=== PATIENT | female | born 1940 | race Caucasian/White ===

== ENCOUNTER 2025-01-13 00:55 | Inpatient (IN) ==
--- NOTE | 2025-01-13 01:03 | Emergency Department Note ---
Impression & Plan Abdominal pain Admission ED Provider Note HPI: History obtained from patient. The patient is a 84-year-old female who presents the emergency department with a chief complaint of lower abdominal pain and diarrhea, patient states she also had about 10 episodes of vomiting today. Patient states her symptoms began earlier this morning. On arrival here to the ED the patient appears to be in mild distress secondary to nausea, her pain is mostly in the lower abdomen. Patient states she also had some blood-tinged mucus from her rectum earlier this evening. Patient states her diarrhea seem to have improved later in the evening as opposed to earlier in the day. Patient denies any chest pain or shortness of breath, patient is otherwise hemodynamically stable on arrival. ROS: - Per HPI Differential Diagnosis: Acute colitis, diverticulitis, viral gastroenteritis, ischemic colitis, small bowel obstruction, perforated viscus, intra-abdominal abscess, amongst other potential pathologies. *Outpatient medications and allergy history reviewed. PE: General: Alert HEENT: Normocephalic, trachea midline Eyes: Extraocular eye movement is intact, no scleral erythema Pulmonary: Clear to auscultation bilaterally, no wheezing Cardio: Regular rate and rhythm GI: Abdomen is soft to palpation, moderate tenderness in the lower abdomen to palpation without guarding or rigidity : No suprapubic tenderness MSK: No evidence of trauma or malformation of the extremities, no edema Skin: No evidence of rash Neuro: Alert, no focal deficits Psychiatric: Cooperative INDEPENDENT INTERPRETATIONS: monitoring analyst: (As interpreted by myself): - An order was placed for continuous cardiac monitoring - Patient was noted to be in sinus rhythm with a rate of 110 Interventions provided in ED: - IV fluid bolus, IV Zosyn, IV morphine, IV Zofran Medical Decision Making: IV was established and lab work obtained, patient was placed on gambling monitor. Lab work shows a leukocytosis of 18.73, hemoglobin is stable at 11.9, platelet count is 443, CMP does not show any evidence of any critical findings. Urinalysis does not show any evidence of any obvious infection. CT imaging of the abdomen pelvis was obtained, there is a nonspecific thickening of the wall of the descending colon with some pericolonic fat stranding that is considered nonspecific. On my reassessment following the above interventions the patient stated that she was feeling improved but she remained tachycardic. Given her significant leukocytosis with nonspecific thickening of the colon wall, I do feel she would benefit from admission and initiation of antibiotics. Stool culture was ordered but the patient was unable to give a sample here in the ED. Blood cultures were drawn, patient was given a dose of IV Zosyn. Her presentation was discussed with the on-call hospitalist, Dr. Calderon, and the patient was placed for admission in stable condition. Consultants/Discussions held with other healthcare providers: - Hospitalist, Dr. Calderon Disposition discussion held by myself with: - Patient and patient's family member at the bedside Diagnosis: 1. Leukocytosis, acute 2. Diarrhea, acute 3. Nonspecific colitis, acute Disposition: Admission Gordy Rodriguez DO Emergency Medicine Past Med/Surg History Problem List (Updated 01/13/25 @ 05:45 by Gordy Rodriguez DO) Abdominal pain (Acute) Social History Smoking Status: Former smoker Preferred Language: Irish Feels Safe at Home: Yes Allergies Allergies Allergy/AdvReac Type Severity Reaction Status Date / Time No Known Allergies Allergy Verified 01/13/25 01:50 Home Meds Home Medications Medication Instructions Recorded Confirmed budesonide-formoterol HFA 160 2 puff inhalation BID 01/13/25 01/13/25 mcg-4.5 mcg/actuation aerosol inhaler (Breyna) cyanocobalamin (vitamin B-12) 1,000 mcg IM MONTHLY 01/13/25 01/13/25 1,000 mcg/mL injection solution escitalopram oxalate 5 mg tablet 5 mg PO HS 01/13/25 01/13/25 melatonin 1 mg tablet 2 mg PO HS 01/13/25 01/13/25 montelukast 10 mg tablet 10 mg PO HS 01/13/25 01/13/25 multivitamin 1 tab PO HS 01/13/25 01/13/25 omeprazole 20 mg capsule,delayed 20 mg PO HS 01/13/25 01/13/25 release Results & Data (ED) Vital Signs Vital Signs - 24 hr 01/13/25 01:02 01/13/25 02:00 01/13/25 02:00 Temperature 37.2 C Temperature Source Oral Pulse Rate 92 H Pulse Rate [Apical] Pulse Rate from SpO2 Sensor Pulse Rhythm Regular Pulse Strength Normal Respiratory Rate 20 Respiratory Effort / Characteristics Non-Labored Spontaneous Respiratory Depth Normal Respiratory Pattern Regular Blood Pressure 174/83 H 143/74 H 143/74 H Blood Pressure [Right Arm] Blood Pressure Mean 113 85 85 Blood Pressure Mean [Right Arm] Blood Pressure Position Sitting Pulse Oximetry 97 Oxygen Delivery Method Room Air Oxygen Flow Rate Sepsis Recent Fever Within 48 Hours No Sepsis New/Unexplained Change in Mental Status N/A Sepsis Action Taken by Nursing No Action Required 01/13/25 02:00 01/13/25 02:00 01/13/25 02:00 Temperature Temperature Source Pulse Rate Pulse Rate [Apical] Pulse Rate from SpO2 Sensor Pulse Rhythm Pulse Strength Respiratory Rate Respiratory Effort / Characteristics Respiratory Depth Respiratory Pattern Blood Pressure 143/74 H 143/74 H 143/74 H Blood Pressure [Right Arm] Blood Pressure Mean 85 85 85 Blood Pressure Mean [Right Arm] Blood Pressure Position Pulse Oximetry Oxygen Delivery Method Oxygen Flow Rate Sepsis Recent Fever Within 48 Hours Sepsis New/Unexplained Change in Mental Status Sepsis Action Taken by Nursing 01/13/25 02:00 01/13/25 02:00 01/13/25 02:00 Temperature Temperature Source Pulse Rate Pulse Rate [Apical] Pulse Rate from SpO2 Sensor Pulse Rhythm Pulse Strength Respiratory Rate Respiratory Effort / Characteristics Respiratory Depth Respiratory Pattern Blood Pressure 143/74 H 143/74 H 143/74 H Blood Pressure [Right Arm] Blood Pressure Mean 85 85 85 Blood Pressure Mean [Right Arm] Blood Pressure Position Pulse Oximetry Oxygen Delivery Method Oxygen Flow Rate Sepsis Recent Fever Within 48 Hours Sepsis New/Unexplained Change in Mental Status Sepsis Action Taken by Nursing 01/13/25 02:00 01/13/25 02:00 01/13/25 02:08 Temperature Temperature Source Pulse Rate 107 H Pulse Rate [Apical] Pulse Rate from SpO2 Sensor Pulse Rhythm Pulse Strength Respiratory Rate Respiratory Effort / Characteristics Respiratory Depth Respiratory Pattern Blood Pressure 143/74 H 143/74 H Blood Pressure [Right Arm] Blood Pressure Mean 85 85 Blood Pressure Mean [Right Arm] Blood Pressure Position Pulse Oximetry Oxygen Delivery Method Oxygen Flow Rate Sepsis Recent Fever Within 48 Hours Sepsis New/Unexplained Change in Mental Status Sepsis Action Taken by Nursing 01/13/25 02:15 01/13/25 02:27 01/13/25 02:30 Temperature Temperature Source Pulse Rate 118 H 115 H Pulse Rate [Apical] Pulse Rate from SpO2 Sensor 118 H Pulse Rhythm Pulse Strength Respiratory Rate 23 20 Respiratory Effort / Characteristics Respiratory Depth Respiratory Pattern Blood Pressure 133/62 Blood Pressure [Right Arm] Blood Pressure Mean 80 Blood Pressure Mean [Right Arm] Blood Pressure Position Pulse Oximetry 90 Oxygen Delivery Method Oxygen Flow Rate Sepsis Recent Fever Within 48 Hours Sepsis New/Unexplained Change in Mental Status Sepsis Action Taken by Nursing 01/13/25 02:30 01/13/25 02:30 01/13/25 02:30 Temperature Temperature Source Pulse Rate Pulse Rate [Apical] Pulse Rate from SpO2 Sensor Pulse Rhythm Pulse Strength Respiratory Rate Respiratory Effort / Characteristics Respiratory Depth Respiratory Pattern Blood Pressure 133/62 133/62 133/62 Blood Pressure [Right Arm] Blood Pressure Mean 80 80 80 Blood Pressure Mean [Right Arm] Blood Pressure Position Pulse Oximetry Oxygen Delivery Method Oxygen Flow Rate Sepsis Recent Fever Within 48 Hours Sepsis New/Unexplained Change in Mental Status Sepsis Action Taken by Nursing 01/13/25 02:30 01/13/25 02:30 01/13/25 02:30 Temperature Temperature Source Pulse Rate Pulse Rate [Apical] Pulse Rate from SpO2 Sensor Pulse Rhythm Pulse Strength Respiratory Rate Respiratory Effort / Characteristics Respiratory Depth Respiratory Pattern Blood Pressure 133/62 133/62 133/62 Blood Pressure [Right Arm] Blood Pressure Mean 80 80 80 Blood Pressure Mean [Right Arm] Blood Pressure Position Pulse Oximetry Oxygen Delivery Method Oxygen Flow Rate Sepsis Recent Fever Within 48 Hours Sepsis New/Unexplained Change in Mental Status Sepsis Action Taken by Nursing 01/13/25 02:30 01/13/25 02:30 01/13/25 02:30 Temperature Temperature Source Pulse Rate Pulse Rate [Apical] Pulse Rate from SpO2 Sensor Pulse Rhythm Pulse Strength Respiratory Rate Respiratory Effort / Characteristics Respiratory Depth Respiratory Pattern Blood Pressure 133/62 133/62 133/62 Blood Pressure [Right Arm] Blood Pressure Mean 80 80 80 Blood Pressure Mean [Right Arm] Blood Pressure Position Pulse Oximetry Oxygen Delivery Method Oxygen Flow Rate Sepsis Recent Fever Within 48 Hours Sepsis New/Unexplained Change in Mental Status Sepsis Action Taken by Nursing 01/13/25 02:30 01/13/25 02:30 01/13/25 02:39 Temperature Temperature Source Pulse Rate 115 H 114 H Pulse Rate [Apical] Pulse Rate from SpO2 Sensor 114 H 114 H Pulse Rhythm Pulse Strength Respiratory Rate 23 23 Respiratory Effort / Characteristics Respiratory Depth Respiratory Pattern Blood Pressure 133/62 Blood Pressure [Right Arm] Blood Pressure Mean 80 Blood Pressure Mean [Right Arm] Blood Pressure Position Pulse Oximetry 90 92 Oxygen Delivery Method Oxygen Flow Rate Sepsis Recent Fever Within 48 Hours Sepsis New/Unexplained Change in Mental Status Sepsis Action Taken by Nursing 01/13/25 03:00 01/13/25 03:00 01/13/25 03:00 Temperature Temperature Source Pulse Rate Pulse Rate [Apical] 110 H Pulse Rate from SpO2 Sensor Pulse Rhythm Pulse Strength Respiratory Rate 18 Respiratory Effort / Characteristics Non-Labored Respiratory Depth Normal Respiratory Pattern Blood Pressure 124/77 124/77 Blood Pressure [Right Arm] 124/77 Blood Pressure Mean 99 99 Blood Pressure Mean [Right Arm] 92 Blood Pressure Position Pulse Oximetry 98 Oxygen Delivery Method Room Air Oxygen Flow Rate Sepsis Recent Fever Within 48 Hours Sepsis New/Unexplained Change in Mental Status Sepsis Action Taken by Nursing 01/13/25 03:00 01/13/25 03:00 01/13/25 03:00 Temperature Temperature Source Pulse Rate Pulse Rate [Apical] Pulse Rate from SpO2 Sensor Pulse Rhythm Pulse Strength Respiratory Rate Respiratory Effort / Characteristics Respiratory Depth Respiratory Pattern Blood Pressure 124/77 124/77 124/77 Blood Pressure [Right Arm] Blood Pressure Mean 99 99 99 Blood Pressure Mean [Right Arm] Blood Pressure Position Pulse Oximetry Oxygen Delivery Method Oxygen Flow Rate Sepsis Recent Fever Within 48 Hours Sepsis New/Unexplained Change in Mental Status Sepsis Action Taken by Nursing 01/13/25 03:00 01/13/25 03:00 01/13/25 03:00 Temperature Temperature Source Pulse Rate Pulse Rate [Apical] Pulse Rate from SpO2 Sensor Pulse Rhythm Pulse Strength Respiratory Rate Respiratory Effort / Characteristics Respiratory Depth Respiratory Pattern Blood Pressure 124/77 124/77 124/77 Blood Pressure [Right Arm] Blood Pressure Mean 99 99 99 Blood Pressure Mean [Right Arm] Blood Pressure Position Pulse Oximetry Oxygen Delivery Method Oxygen Flow Rate Sepsis Recent Fever Within 48 Hours Sepsis New/Unexplained Change in Mental Status Sepsis Action Taken by Nursing 01/13/25 03:24 01/13/25 03:30 01/13/25 03:30 Temperature Temperature Source Pulse Rate 118 H Pulse Rate [Apical] Pulse Rate from SpO2 Sensor 117 H Pulse Rhythm Pulse Strength Respiratory Rate 21 Respiratory Effort / Characteristics Respiratory Depth Respiratory Pattern Blood Pressure 117/66 117/66 Blood Pressure [Right Arm] Blood Pressure Mean 101 101 Blood Pressure Mean [Right Arm] Blood Pressure Position Pulse Oximetry 94 Oxygen Delivery Method Oxygen Flow Rate Sepsis Recent Fever Within 48 Hours Sepsis New/Unexplained Change in Mental Status Sepsis Action Taken by Nursing 01/13/25 03:30 01/13/25 03:30 01/13/25 03:30 Temperature Temperature Source Pulse Rate Pulse Rate [Apical] Pulse Rate from SpO2 Sensor Pulse Rhythm Pulse Strength Respiratory Rate Respiratory Effort / Characteristics Respiratory Depth Respiratory Pattern Blood Pressure 117/66 117/66 117/66 Blood Pressure [Right Arm] Blood Pressure Mean 101 101 101 Blood Pressure Mean [Right Arm] Blood Pressure Position Pulse Oximetry Oxygen Delivery Method Oxygen Flow Rate Sepsis Recent Fever Within 48 Hours Sepsis New/Unexplained Change in Mental Status Sepsis Action Taken by Nursing 01/13/25 03:30 01/13/25 03:30 01/13/25 03:30 Temperature Temperature Source Pulse Rate Pulse Rate [Apical] Pulse Rate from SpO2 Sensor Pulse Rhythm Pulse Strength Respiratory Rate Respiratory Effort / Characteristics Respiratory Depth Respiratory Pattern Blood Pressure 117/66 117/66 117/66 Blood Pressure [Right Arm] Blood Pressure Mean 101 101 101 Blood Pressure Mean [Right Arm] Blood Pressure Position Pulse Oximetry Oxygen Delivery Method Oxygen Flow Rate Sepsis Recent Fever Within 48 Hours Sepsis New/Unexplained Change in Mental Status Sepsis Action Taken by Nursing 01/13/25 03:30 01/13/25 03:39 01/13/25 03:42 Temperature Temperature Source Pulse Rate 115 H 115 H Pulse Rate [Apical] Pulse Rate from SpO2 Sensor 115 H 117 H Pulse Rhythm Pulse Strength Respiratory Rate 17 15 Respiratory Effort / Characteristics Respiratory Depth Respiratory Pattern Blood Pressure 117/66 Blood Pressure [Right Arm] Blood Pressure Mean 101 Blood Pressure Mean [Right Arm] Blood Pressure Position Pulse Oximetry 93 98 Oxygen Delivery Method Oxygen Flow Rate Sepsis Recent Fever Within 48 Hours Sepsis New/Unexplained Change in Mental Status Sepsis Action Taken by Nursing 01/13/25 03:54 01/13/25 04:02 01/13/25 04:02 Temperature Temperature Source Pulse Rate 112 H Pulse Rate [Apical] Pulse Rate from SpO2 Sensor 112 H Pulse Rhythm Pulse Strength Respiratory Rate 18 Respiratory Effort / Characteristics Respiratory Depth Respiratory Pattern Blood Pressure 160/60 H 160/60 H Blood Pressure [Right Arm] Blood Pressure Mean 96 96 Blood Pressure Mean [Right Arm] Blood Pressure Position Pulse Oximetry 100 Oxygen Delivery Method Nasal Cannula Oxygen Flow Rate 2 Sepsis Recent Fever Within 48 Hours Sepsis New/Unexplained Change in Mental Status Sepsis Action Taken by Nursing 01/13/25 04:02 01/13/25 04:03 Temperature Temperature Source Pulse Rate 112 H Pulse Rate [Apical] Pulse Rate from SpO2 Sensor 114 H Pulse Rhythm Pulse Strength Respiratory Rate 19 Respiratory Effort / Characteristics Respiratory Depth Respiratory Pattern Blood Pressure 160/60 H Blood Pressure [Right Arm] Blood Pressure Mean 96 Blood Pressure Mean [Right Arm] Blood Pressure Position Pulse Oximetry 99 Oxygen Delivery Method Oxygen Flow Rate Sepsis Recent Fever Within 48 Hours Sepsis New/Unexplained Change in Mental Status Sepsis Action Taken by Nursing Laboratory Data 01/13/25 00:56 01/13/25 00:56 Lab Results 01/13/25 01/13/25 01/13/25 Range/Units 00:56 02:15 04:07 WBC 18.73 H (4.8-10.8) K/ul RBC 4.74 (4.20-5.40) M/uL Hgb 11.9 L (12.0-16.0) g/dl Hct 38.1 (37.0-47.0) % MCV 80.4 (80.0-100.0) fL MCH 25.1 (25.0-34.0) pg MCHC 31.2 L (32.0-36.0) g/dL RDW Std Deviation 50.5 H (36.4-46.3) fL RDW Coeff of Lisa 17.2 H (11.5-14.5) % Plt Count 443 H (130-400) K/uL MPV 10.2 (9.4-12.4) fL Immature Gran % (Auto) 0.4 % Neut % (Auto) 89.6 % Lymph % (Auto) 5.7 % [place] % (Auto) 3.9 % Eos % (Auto) 0.1 % Baso % (Auto) 0.3 % Neut # (Auto) 16.80 H (1.40-6.50) K/uL Lymph # (Auto) 1.06 L (1.20-3.40) K/uL [place] # (Auto) 0.73 H (0.11-0.59) K/uL Eos # (Auto) 0.01 (0.00-0.50) K/uL Baso # (Auto) 0.05 (0.00-0.20) K/uL Immature Gran # (Auto) 0.08 (0.01-0.20) K/uL Sodium 139 (136-145) mmol/L Potassium 3.8 (3.5-5.1) mmol/L Chloride 104 (98-107) mmol/L Carbon Dioxide 28 (21-32) mmol/L Anion Gap 7 (3-11) BUN 26 H (6-23) mg/dl Creatinine 0.89 (0.6-1.2) mg/dl Est Cr Clr Drug Dosing 45.3 ml/min eGFR 63.10 BUN/Creatinine Ratio 29.2 H (10-20) Glucose 156 H (70-99(Fasting)) mg/dl Lactate 1.0 (0.4-2.0) mmol/L Calcium 9.5 (8.6-10.3) mg/dl Magnesium 1.8 (1.7-2.4) mg/dl Total Bilirubin 0.3 (0.2-1.0) mg/dl AST 17 (13-39) U/L ALT 12 (7-52) U/L Alkaline Phosphatase 71 (34-104) U/L Total Protein 7.6 (6.0-8.3) gm/dl Albumin 4.6 (3.4-5.0) gm/dl Globulin 3.0 (2.5-4.0) gm/dl Albumin/Globulin Ratio 1.5 (0.9-2) Lipase 28 (11-82) U/L Urine Color Yellow Urine Appearance Clear (Clear) Urine pH 5.5 (4.5-7.5) Ur Specific [place] 1.041 H (1.000-1.030) Urine Protein 2+ H (Negative) Urine Glucose (UA) Negative (Negative) Urine Ketones Trace H (Negative) Urine Blood Trace H (Negative) Urine Nitrite Negative (Negative) Urine Bilirubin Negative (Negative) Urine Urobilinogen Negative (Negative) Ur Leukocyte Esterase Negative (Negative) Urine WBC (Auto) 0-5 (0-5) /hpf Urine RBC (Auto) 3-5 H (0-2) /hpf U Hyaline Cast (Auto) 0-2 (0-2) /lpf U Epithel Cells (Auto) 0-2 (0-2) /hpf Urine Bacteria (Auto) None Seen (None Seen) Administered Medications Potassium Chloride/Sodium Chloride (Normal Saline W/20 Meq Kcl) 20 meq in 1,000 mls @ 60 mls/hr IV .[id number] ONE Stop: 01/13/25 20:18 Last Admin: 01/13/25 04:48 Dose: 75 mls/hr Documented By: VALERY Magnesium Sulfate/Dextrose (Magnesium Sulfate / D5w) 1 gm in 100 mls @ 50 mls/hr IV ONE ONE Stop: 01/13/25 06:48 Last Admin: 01/13/25 05:20 Dose: 50 mls/hr Documented By: VALERY Discontinued Medications Sodium Chloride (Nss) 1,000 mls @ 999 mls/hr IV .Q1H1M STA Stop: 01/13/25 01:56 Last Infusion: 01/13/25 02:20 Dose: Infused Documented By: Admin: 01/13/25 01:06 Dose: 999 mls/hr Documented By: LYNNETTE Piperacillin Sod/Tazobactam Sod (Zosyn) 4.5 gm in 100 mls @ 200 mls/hr IV NOW ONE; Protocol Stop: 01/13/25 03:46 Last Infusion: 01/13/25 04:35 Dose: Infused Documented By: Admin: 01/13/25 04:03 Dose: 200 mls/hr Documented By: VALERY Sodium Chloride (Nss) 1,000 mls @ 999 mls/hr IV .Q1H1M ONE Stop: 01/13/25 04:17 Last Infusion: 01/13/25 05:17 Dose: Infused Documented By: Admin: 01/13/25 03:38 Dose: 999 mls/hr Documented By: VALERY Ioversol (Optiray 320 100ml) 100 ml IV ONCE ONE Stop: 01/13/25 01:55 Last Admin: 01/13/25 01:54 Dose: 93 ml Documented By: TATYANA Metoprolol Tartrate (Metoprolol Tartrate 1 Mg/Ml Vial) 2.5 mg IV NOW STA Stop: 01/13/25 04:46 Last Admin: 01/13/25 05:20 Dose: 2.5 mg Documented By: VALERY Morphine Sulfate (Morphine Sulfate 4 Mg/Ml 1 Ml Carp\Vial) 4 mg IV NOW STA Stop: 01/13/25 01:02 Last Admin: 01/13/25 01:09 Dose: 4 mg Documented By: MARIA A Ondansetron HCl (Ondansetron Inj 2 Mg/Ml 2 Ml Vial) 4 mg IV NOW STA Stop: 01/13/25 01:02 Last Admin: 01/13/25 01:05 Dose: 4 mg Documented By: LYNNETTE Imaging Data Radiologist's Impression: Abdomen/Pelvis CT 01/13/25 01:02 EXAM: CT abd pelvis IV con only CLINICAL HISTORY: Lower abdominal pain. TECHNIQUE: CT of the abdomen and pelvis was performed with IV contrast, with the following protocol: axial images with reconstructed coronal and sagittal images. One of the following dose reduction techniques was utilized for this exam: Automated exposure control, adjustment of the mA and/or kV according to patient size, and use of iterative reconstruction. CTDI: 21.07 mGy and DLP: 954.37 mGy-cm. COMPARISON: No prior studies available for comparison. FINDINGS: Lower lung cuts show Bilateral basal fibrotic bands. Multiple small solid nodules are seen at the anterior segment of the right lower lobe, 7mm, and the posterior segment of the left lower lobe 8.8 mm. Abdomen: Liver: Increased in size 18.8 cm, normal in shape, and decreased density. No focal lesions, cysts, or masses were identified. Hepatic vasculature and biliary ducts are unremarkable. Gallbladder and Biliary System: The gallbladder is normal in size and shape. No wall thickening, pericholecystic fluid, or gallstones were identified. The common bile duct is normal in caliber without dilation. Pancreas: The pancreatic head, body, and tail are visualized and appear normal in size and density. No pancreatic masses or calcifications were noted. The pancreatic duct is not dilated. Spleen: Normal in size, shape, and density. No splenic lesions or masses were identified. Appendix: The appendix is normal in size without periappendiceal fat stranding and without an appendicolith. No evidence of appendiceal abscess or perforation. Kidneys and Adrenal Glands: Both kidneys are normal in size, shape, and position with bilateral small multiple cortical cysts. Cortical thickness is within normal limits. No renal calculi or hydronephrosis. Adrenal glands are unremarkable with no evidence of masses or hyperplasia. Pelvis: Urinary Bladder: Normal in contour and wall thickness. No intraluminal lesions were identified. Uterus: Non-visualized may be surgically removed. Ovaries: Not well visualized, but no gross abnormalities noted. Vagina: Normal in contour and wall thickness. Cervix: No evidence of mass or abnormal thickening. Peritoneal and Retroperitoneal Structures: No free fluid or abnormal fluid collections were identified within the abdomen or pelvis. No lymphadenopathy was noted. Bowel: Loss of haustration of the left side colon with a long segment of increased mural thickness of the distal part of the descending colon and rectosigmoid colons with possible luminal attenuation and stranding of the pericolic fat planes and congestion of the related vasa recta. The visualized bowel loops are normal in caliber and appearance. No evidence of bowel obstruction. Bones and Soft Tissues: Spondylodegenerative changes of the lumbar spine with multilevel disc space narrowing. Mild scoliosis of the lumbar spine with convexity to the right side. The pelvic bones and soft tissues are unremarkable. No fractures or abnormal masses were identified. IMPRESSION: 1. Loss of the haustration of the left side colon with edematous thickened wall of the rectosigmoid and distal descending colon with pericolic fat stranding and congested related vasa recta suggestive of an inflammatory condition Ulcerative colitis; however, the possibility of a neoplastic condition couldn't be ruled out. Clinical correlation is advised. 2. Hepatomegaly with steatosis. 3. Multiple bilateral small solid pulmonary nodules. An indicated chest CT is recommended for further evaluation. Electronically signed by Alessandro Tineo 01-13-2025 03:02 AM Discharge Plan Visit Data Chief Complaint: Diarrhea Stated Complaint: DIARRHEA ED Provider: Gordy Rodriguez Discharge Problem: Abdominal pain
[2025-01-13] MEDS: ONDANSETRON INJ 2 MG/ML 2 ML VIAL IV STA (01:05)
[2025-01-13] MEDS: SODIUM CHLORIDE 0.9% 1,000 ML IV STA (01:06)
[2025-01-13] MEDS: MoRPHine SULFATE 4 MG/ML 1 ML CARP\\VIAL IV STA (01:09)
[2025-01-13 01:32] LABS: Basophils # (auto) 0.05 K/uL (0.00-0.20); Basophils % (auto) 0.3 %; Eosinophils # (auto) 0.01 K/uL (0.00-0.50); Eosinophils % (auto) 0.1 %; Hematocrit (blood only) 38.1 % (37.0-47.0); Hemoglobin 11.9 g/dl (12.0-16.0); Immature Granulocytes # (auto) 0.08 K/uL (0.01-0.20); Immature Granulocytes % (auto) 0.4 %; Lymphocytes # (auto) 1.06 K/uL (1.20-3.40); Lymphocytes % (auto) 5.7 %; Mean Corpuscular Hemoglobin 25.1 pg (25.0-34.0); Mean Corpuscular Hgb Conc 31.2 g/dL (32.0-36.0); Mean Corpuscular Volume 80.4 fL (80.0-100.0); Mean Platelet Volume 10.2 fL (9.4-12.4); Monocytes # (auto) 0.73 K/uL (0.11-0.59); Monocytes % (auto) 3.9 %; Neutrophils % (auto) 89.6 %; Platelet Count 443 K/uL (130-400); RDW Coefficient of Variation 17.2 % (11.5-14.5); RDW Standard Deviation 50.5 fL (36.4-46.3); Red Blood Count 4.74 M/uL (4.20-5.40); White Blood Count 18.73 K/ul (4.8-10.8)
[2025-01-13 01:33] LABS: Albumin Globulin Ratio 1.5 (0.9-2); Albumin Level 4.6 gm/dl (3.4-5.0); BUN Creatinine Ratio 29.2 (10-20); Bilirubin,Total 0.3 mg/dl (0.2-1.0); Calcium 9.5 mg/dl (8.6-10.3); Creatinine Clr Calc Pharmacy 45.3 ml/min; Potassium 3.8 mmol/L (3.5-5.1); Total Protein 7.6 gm/dl (6.0-8.3)
[2025-01-13] MEDS: OPTIRAY 320 100ml IV ONE (01:54)
[2025-01-13 02:54] LABS: Appearance Urine Clear (Clear); Bacteria Urine Automated None Seen (None Seen); Bilirubin Urine Negative (Negative); Blood Urine Trace (Negative); Cast Urine Automated 0-2 /lpf (0-2); Color Urine Yellow; Epithelial Cell Urine Auto 0-2 /hpf (0-2); Glucose Urine UA Negative (Negative); Ketones Urine Trace (Negative); Leukocyte Esterase Urine Negative (Negative); Nitrite Urine Negative (Negative); Protein Urine 2+ (Negative); Specific Gravity Urine 1.041 (1.000-1.030); Urobilinogen Urine Negative (Negative); WBC Urine Automated 0-5 /hpf (0-5); pH Urine 5.5 (4.5-7.5)
--- NOTE | 2025-01-13 03:03 | CT Scan Report ---
EXAM: CT abd pelvis IV con only CLINICAL HISTORY: Lower abdominal pain. TECHNIQUE: CT of the abdomen and pelvis was performed with IV contrast, with the following protocol: axial images with reconstructed coronal and sagittal images. One of the following dose reduction techniques was utilized for this exam: Automated exposure control, adjustment of the mA and/or kV according to patient size, and use of iterative reconstruction. CTDI: 21.07 mGy and DLP: 954.37 mGy-cm. COMPARISON: No prior studies available for comparison. FINDINGS: Lower lung cuts show Bilateral basal fibrotic bands. Multiple small solid nodules are seen at the anterior segment of the right lower lobe, 7mm, and the posterior segment of the left lower lobe 8.8 mm. Abdomen: Liver: Increased in size 18.8 cm, normal in shape, and decreased density. No focal lesions, cysts, or masses were identified. Hepatic vasculature and biliary ducts are unremarkable. Gallbladder and Biliary System: The gallbladder is normal in size and shape. No wall thickening, pericholecystic fluid, or gallstones were identified. The common bile duct is normal in caliber without dilation. Pancreas: The pancreatic head, body, and tail are visualized and appear normal in size and density. No pancreatic masses or calcifications were noted. The pancreatic duct is not dilated. Spleen: Normal in size, shape, and density. No splenic lesions or masses were identified. Appendix: The appendix is normal in size without periappendiceal fat stranding and without an appendicolith. No evidence of appendiceal abscess or perforation. Kidneys and Adrenal Glands: Both kidneys are normal in size, shape, and position with bilateral small multiple cortical cysts. Cortical thickness is within normal limits. No renal calculi or hydronephrosis. Adrenal glands are unremarkable with no evidence of masses or hyperplasia. Pelvis: Urinary Bladder: Normal in contour and wall thickness. No intraluminal lesions were identified. Uterus: Non-visualized may be surgically removed. Ovaries: Not well visualized, but no gross abnormalities noted. Vagina: Normal in contour and wall thickness. Cervix: No evidence of mass or abnormal thickening. Peritoneal and Retroperitoneal Structures: No free fluid or abnormal fluid collections were identified within the abdomen or pelvis. No lymphadenopathy was noted. Bowel: Loss of haustration of the left side colon with a long segment of increased mural thickness of the distal part of the descending colon and rectosigmoid colons with possible luminal attenuation and stranding of the pericolic fat planes and congestion of the related vasa recta. The visualized bowel loops are normal in caliber and appearance. No evidence of bowel obstruction. Bones and Soft Tissues: Spondylodegenerative changes of the lumbar spine with multilevel disc space narrowing. Mild scoliosis of the lumbar spine with convexity to the right side. The pelvic bones and soft tissues are unremarkable. No fractures or abnormal masses were identified. IMPRESSION: 1. Loss of the haustration of the left side colon with edematous thickened wall of the rectosigmoid and distal descending colon with pericolic fat stranding and congested related vasa recta suggestive of an inflammatory condition Ulcerative colitis; however, the possibility of a neoplastic condition couldn't be ruled out. Clinical correlation is advised. 2. Hepatomegaly with steatosis. 3. Multiple bilateral small solid pulmonary nodules. An indicated chest CT is recommended for further evaluation. Electronically signed by Alessandro Tineo 01-13-2025 03:02 AM
[2025-01-13] MEDS: SODIUM CHLORIDE 0.9% 1,000 ML IV ONE (03:38)
[2025-01-13] MEDS: PIPERACILLIN/TAZOBACTAM 4.5 GM/100 ML BAG IV ONE (04:03)
--- NOTE | 2025-01-13 04:10 | History & Physical Report ---
Date of Service January 13, 2025 Assessment & Plan (1) Sepsis: Plan: Sepsis secondary to hemorrhagic colitis Rule out infectious causes Situational hypertension COPD, not in acute exacerbation carcinoid lung tumor status post surgery GERD, on PPI Hyperglycemia rule out DM past tobacco abuse Admit to med/tele CS, Zosyn Stool cultures, stool C. difficile GI consult for colitis if stool C. difficile negative Check hemoglobin A1c DVT prophylaxis. SCDs re: LGIB Full code Patient son requesting updates providers. Mr. Juarez López, contact #[phone]. Text document was generated using [employer] voice recognition software. It may contain grammatical or spelling errors. Kindly contact undersigned for clarification of any documentation item in question. History of Present Illness Chief Complaint: Abdominal pain Primary Care Provider: Go Webb DO History obtained from patient, family, and records. Medical history significant for COPD, carcinoid lung tumor status post surgery, GERD, diverticulosis/polyps as per patient, mood disorder, past tobacco abuse. Few months ago patient noted some change in bowel habits without unusual weight loss. Last night, patient had achy left-sided abdominal pain with bloody diarrhea. Not sure about sick contacts/antibiotic Rx/out-of-town travel. Denies chest pain, SOB. Zosyn administered at the ER. 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 Allergies Allergy/AdvReac Type Severity Reaction Status Date / Time No Known Allergies Allergy Verified 01/13/25 01:50 Home Medications Medication Instructions Recorded Confirmed Type budesonide-formoterol HFA 160 2 puff inhalation BID 01/13/25 01/13/25 History mcg-4.5 mcg/actuation aerosol inhaler (Breyna) cyanocobalamin (vitamin B-12) 1,000 mcg IM MONTHLY 01/13/25 01/13/25 History 1,000 mcg/mL injection solution escitalopram oxalate 5 mg tablet 5 mg PO HS 01/13/25 01/13/25 History melatonin 1 mg tablet 2 mg PO HS 01/13/25 01/13/25 History montelukast 10 mg tablet 10 mg PO HS 01/13/25 01/13/25 History multivitamin 1 tab PO HS 01/13/25 01/13/25 History omeprazole 20 mg capsule,delayed 20 mg PO HS 01/13/25 01/13/25 History release Past Med/Surg History Problem List (Updated 01/13/25 @ 09:04 by Jon Calderon MD) Sepsis Abdominal pain (Acute) Social History Smoking Status: Never smoker Hx Alcohol Use: No Hx Substance Use: No Preferred Language: Bhutanese Communication Ability: Effective Careers Counsellor Required: No Beliefs That Will Affect Care: None Current Living Situation: Alone Feels Safe at Home: Yes Review of Systems Review of Systems: As per HPI, all other systems reviewed and negative Physical Exam Physical Exam: GENERAL: Comfortable, pleasant, looks younger than stated age, no respiratory distress SKIN: Normal color, warm HEENT: Bespectacled, pink palpebral conjunctivae, no ptosis, dry buccal mucosa NECK : Supple, no tenderness CHEST : CTA, no tenderness HEART : Tachycardic, no obvious murmurs ABDOMEN: Some distention, left-sided abdominal tenderness EXTREMITIES : No LE swelling/tenderness, palpable pulses, no other conspicuous deformities noted NEUROLOGIC : Coherent, no facial asymmetry, no other gross focality Results & Data Results & Data Vital Signs (Past 12 Hours) Vital Signs Temp Pulse Pulse Resp BP BP Pulse Ox 01/13/25 03:00 110 H 18 124/77 98 01/13/25 02:08 107 H 01/13/25 01:02 37.2 C 92 H 20 174/83 H 97 O2 Del Method 01/13/25 03:00 Room Air 01/13/25 02:08 01/13/25 01:02 Room Air Laboratory Results Laboratory Results WBC 18.73 K/ul (4.8-10.8) H 01/13/25 00:56 RBC 4.74 M/uL (4.20-5.40) 01/13/25 00:56 Hgb 11.9 g/dl (12.0-16.0) L 01/13/25 00:56 Hct 38.1 % (37.0-47.0) 01/13/25 00:56 MCV 80.4 fL (80.0-100.0) 01/13/25 00:56 MCH 25.1 pg (25.0-34.0) 01/13/25 00:56 MCHC 31.2 g/dL (32.0-36.0) L 01/13/25 00:56 RDW Std Deviation 50.5 fL (36.4-46.3) H 01/13/25 00:56 RDW Coeff of Lisa 17.2 % (11.5-14.5) H 01/13/25 00:56 Plt Count 443 K/uL (130-400) H 01/13/25 00:56 MPV 10.2 fL (9.4-12.4) 01/13/25 00:56 Immature Gran % (Auto) 0.4 % 01/13/25 00:56 Neut % (Auto) 89.6 % 01/13/25 00:56 Lymph % (Auto) 5.7 % 01/13/25 00:56 [place] % (Auto) 3.9 % 01/13/25 00:56 Eos % (Auto) 0.1 % 01/13/25 00:56 Baso % (Auto) 0.3 % 01/13/25 00:56 Neut # (Auto) 16.80 K/uL (1.40-6.50) H 01/13/25 00:56 Lymph # (Auto) 1.06 K/uL (1.20-3.40) L 01/13/25 00:56 [place] # (Auto) 0.73 K/uL (0.11-0.59) H 01/13/25 00:56 Eos # (Auto) 0.01 K/uL (0.00-0.50) 01/13/25 00:56 Baso # (Auto) 0.05 K/uL (0.00-0.20) 01/13/25 00:56 Immature Gran # (Auto) 0.08 K/uL (0.01-0.20) 01/13/25 00:56 Sodium 139 mmol/L (136-145) 01/13/25 00:56 Potassium 3.8 mmol/L (3.5-5.1) 01/13/25 00:56 Chloride 104 mmol/L (98-107) 01/13/25 00:56 Carbon Dioxide 28 mmol/L (21-32) 01/13/25 00:56 Anion Gap 7 (3-11) 01/13/25 00:56 BUN 26 mg/dl (6-23) H 01/13/25 00:56 Creatinine 0.89 mg/dl (0.6-1.2) 01/13/25 00:56 Est Cr Clr Drug Dosing 45.3 ml/min 01/13/25 00:56 eGFR 63.10 01/13/25 00:56 BUN/Creatinine Ratio 29.2 (10-20) H 01/13/25 00:56 Glucose 156 mg/dl (70-99(Fasting)) H 01/13/25 00:56 Calcium 9.5 mg/dl (8.6-10.3) 01/13/25 00:56 Total Bilirubin 0.3 mg/dl (0.2-1.0) 01/13/25 00:56 AST 17 U/L (13-39) 01/13/25 00:56 ALT 12 U/L (7-52) 01/13/25 00:56 Alkaline Phosphatase 71 U/L (34-104) 01/13/25 00:56 Total Protein 7.6 gm/dl (6.0-8.3) 01/13/25 00:56 Albumin 4.6 gm/dl (3.4-5.0) 01/13/25 00:56 Globulin 3.0 gm/dl (2.5-4.0) 04 00:56 Albumin/Globulin Ratio 1.5 (0.9-2) 01/13/25 00:56 Lipase 28 U/L (11-82) 01/13/25 00:56 Urine Color Yellow 01/13/25 02:15 Urine Appearance Clear (Clear) 01/13/25 02:15 Urine pH 5.5 (4.5-7.5) 01/13/25 02:15 Ur Specific [place] 1.041 (1.000-1.030) H 01/13/25 02:15 Urine Protein 2+ (Negative) H 01/13/25 02:15 Urine Glucose (UA) Negative (Negative) 01/13/25 02:15 Urine Ketones Trace (Negative) H 01/13/25 02:15 Urine Blood Trace (Negative) H 01/13/25 02:15 Urine Nitrite Negative (Negative) 01/13/25 02:15 Urine Bilirubin Negative (Negative) 01/13/25 02:15 Urine Urobilinogen Negative (Negative) 01/13/25 02:15 Ur Leukocyte Esterase Negative (Negative) 01/13/25 02:15 Urine WBC (Auto) 0-5 /hpf (0-5) 01/13/25 02:15 Urine RBC (Auto) 3-5 /hpf (0-2) H 01/13/25 02:15 U Hyaline Cast (Auto) 0-2 /lpf (0-2) 01/13/25 02:15 U Epithel Cells (Auto) 0-2 /hpf (0-2) 01/13/25 02:15 Urine Bacteria (Auto) None Seen (None Seen) 01/13/25 02:15 Impressions Abdomen/Pelvis CT 01/13/25 01:02 EXAM: CT abd pelvis IV con only CLINICAL HISTORY: Lower abdominal pain. TECHNIQUE: CT of the abdomen and pelvis was performed with IV contrast, with the following protocol: axial images with reconstructed coronal and sagittal images. One of the following dose reduction techniques was utilized for this exam: Automated exposure control, adjustment of the mA and/or kV according to patient size, and use of iterative reconstruction. CTDI: 21.07 mGy and DLP: 954.37 mGy-cm. COMPARISON: No prior studies available for comparison. FINDINGS: Lower lung cuts show Bilateral basal fibrotic bands. Multiple small solid nodules are seen at the anterior segment of the right lower lobe, 7mm, and the posterior segment of the left lower lobe 8.8 mm. Abdomen: Liver: Increased in size 18.8 cm, normal in shape, and decreased density. No focal lesions, cysts, or masses were identified. Hepatic vasculature and biliary ducts are unremarkable. Gallbladder and Biliary System: The gallbladder is normal in size and shape. No wall thickening, pericholecystic fluid, or gallstones were identified. The common bile duct is normal in caliber without dilation. Pancreas: The pancreatic head, body, and tail are visualized and appear normal in size and density. No pancreatic masses or calcifications were noted. The pancreatic duct is not dilated. Spleen: Normal in size, shape, and density. No splenic lesions or masses were identified. Appendix: The appendix is normal in size without periappendiceal fat stranding and without an appendicolith. No evidence of appendiceal abscess or perforation. Kidneys and Adrenal Glands: Both kidneys are normal in size, shape, and position with bilateral small multiple cortical cysts. Cortical thickness is within normal limits. No renal calculi or hydronephrosis. Adrenal glands are unremarkable with no evidence of masses or hyperplasia. Pelvis: Urinary Bladder: Normal in contour and wall thickness. No intraluminal lesions were identified. Uterus: Non-visualized may be surgically removed. Ovaries: Not well visualized, but no gross abnormalities noted. Vagina: Normal in contour and wall thickness. Cervix: No evidence of mass or abnormal thickening. Peritoneal and Retroperitoneal Structures: No free fluid or abnormal fluid collections were identified within the abdomen or pelvis. No lymphadenopathy was noted. Bowel: Loss of haustration of the left side colon with a long segment of increased mural thickness of the distal part of the descending colon and rectosigmoid colons with possible luminal attenuation and stranding of the pericolic fat planes and congestion of the related vasa recta. The visualized bowel loops are normal in caliber and appearance. No evidence of bowel obstruction. Bones and Soft Tissues: Spondylodegenerative changes of the lumbar spine with multilevel disc space narrowing. Mild scoliosis of the lumbar spine with convexity to the right side. The pelvic bones and soft tissues are unremarkable. No fractures or abnormal masses were identified. IMPRESSION: 1. Loss of the haustration of the left side colon with edematous thickened wall of the rectosigmoid and distal descending colon with pericolic fat stranding and congested related vasa recta suggestive of an inflammatory condition Ulcerative colitis; however, the possibility of a neoplastic condition couldn't be ruled out. Clinical correlation is advised. 2. Hepatomegaly with steatosis. 3. Multiple bilateral small solid pulmonary nodules. An indicated chest CT is recommended for further evaluation. Electronically signed by Alessandro Tineo 01-13-2025 03:02 AM
[2025-01-13 04:25] LABS: Magnesium 1.8 mg/dl (1.7-2.4)
[2025-01-13] MEDS ORDERED: oxyCODONE HCL IR 5 MG TAB (IMMEDIATE RELEASE) PO PRN (04:47)
[2025-01-13] MEDS ORDERED: ACETAMINOPHEN 325 MG TAB PO PRN (04:47)
[2025-01-13] MEDS ORDERED: PROMETHAZINE 6.25 MG/50.25 ML BAG IV PRN (04:47)
[2025-01-13] MEDS: NSS + 20MEQ KCL 20 MEQ/1,000 ML BAG IV ONE (04:48)
[2025-01-13] MEDS: METOPROLOL TARTRATE 1 MG/ML VIAL IV STA (05:20)
[2025-01-13] MEDS: MAGNESIUM SULFATE / D5W 1 GM/100 ML BAG IV ONE (05:20)
[2025-01-13 05:51] LABS: Hematocrit (blood only) 33.1 % (37.0-47.0); Hemoglobin 10.3 g/dl (12.0-16.0)
[2025-01-13 07:11] LABS: Estimated Average Glucose 128 mg/dl; Hemoglobin A1C 6.1 % (4.5-5.6)
[2025-01-13] MEDS: FLUTICASONE/VILANTEROL 200/25MCG 14 PUFFS/INHALER INH SCH (10:18)
[2025-01-13] MEDS: PIPERACILLIN/TAZOBACTAM 4.5 GM/100 ML BAG IV SCH (10:18)
[2025-01-13 11:00] LABS: Adenovirus F 40/41 PCR Not Detected (NotDetected); Astrovirus PCR Not Detected (NotDetected); Campylobacter PCR Not Detected (NotDetected); Cryptosporidium PCR Not Detected (NotDetected); Cyclospora cayetanensis PCR Not Detected (NotDetected); Entamoeba histolytica PCR Not Detected (NotDetected); Enteroaggregative E.coli(EAEC) Not Detected (NotDetected); Enteropathogenic E.coli (EPEC) Not Detected (NotDetected); Enterotoxigenic E.coli (ETEC) Not Detected (NotDetected); Giardia lamblia PCR Not Detected (NotDetected); Norovirus GI/GII PCR Not Detected (NotDetected); Plesiomonas shigelloides PCR Not Detected (NotDetected); Rotavirus A PCR Not Detected (NotDetected); Salmonella PCR Not Detected (NotDetected); Sapovirus PCR Not Detected (NotDetected); Shiga-like Toxin E.coli (STEC) Not Detected (NotDetected); Shigella/Enteroinvasive E.coli Not Detected (NotDetected); Vibrio cholerae PCR Not Detected (NotDetected); Vibrio species PCR Not Detected (NotDetected); Yersinia enterocolitica PCR Not Detected (NotDetected)
--- NOTE | 2025-01-13 13:28 | Communication Note ---
Date of Service: January 13, 2025 Patient seen and examined at bedside as a follow-up of colitis and bloody diarrhea. Stool PCR negative, negative C. difficile. Continue with Zosyn, consult GI. Clear liquid diet for now. Also noted to have prediabetes, recommend lifestyle modification and follow-up A1c in 3 months. Continue with IV fluid, pain control, nausea medications. Patient will need colonoscopy in about 2 months time upon discharge. Patient reports improvement in her nausea and vomiting, reports some improvement in her lower abdominal pain. Reports feeling better overall. For detailed information on the patient, refer to today's H&P note.
--- NOTE | 2025-01-13 13:54 | Gastrointestinal Consultation ---
Date of Consultation January 13, 2025 Assessment & Plan (1) Colitis: Plan Patient admitted with sudden onset diarrhea, nausea, vomiting, and abdominal pain. Stool studies negative. CT suggestive of inflammatory condition, but cannot rule out neoplasm. she has seen improvement in symptoms since arrival and starting Zosyn. - we discussed a colonoscopy to further evaluate but she is not sure she wants to proceed with this given her age. - continue with zosyn at this time. - further recommendations to follow, see Dr. Akhtar's append. Supervising Physician Co-Signing Physician Notes I saw and examined this patient with our nurse practitioner and agree with her assessment and plan. Reviewed CT scan with radiology which demonstrates significant inflammatory changes in the rectosigmoid colon. More proximal colon unaffected. Mesenteric vessels appear patent and not stenotic. Stool studies were negative. Clinical picture and imaging most consistent with ischemic colitis. Typically this will resolve with medical management. Agree with n.p.o. IV antibiotics. Will reassess patient in AM. History of Present Illness Reason for Consultation: Colitis / bloody diarrhea Requesting Physician: Shama Lyon MD Attending Physician: Shama Lyon MD History of Present Illness Patient is an 84 year old female who presented to the ED today for evaluation of sudden onset of bloody diarrhea. She reports that last evening she had eaten a late dinner as she was at her [employer] viewing and about 2 hours later started with lower abdominal cramping that lead into diarrhea accompanied by nausea and vomiting. she had several episodes of diarrhea and at one point this changed and she noticed some small amounts of blood mixed in with this. Prior to this, she tells me she would maybe have diarrhea a few times a month depending on diet, but otherwise her bowels were regular. She tells me that her son, who was with her at her bedside, ate all the same foods she did yesterday and did not get ill like she did. Upon work up, her stool studies were unremarkable. CT scan as per below. Since coming in, her nausea and vomiting has resolved. Her stomach pain is improved, though she admits she still has some. she reports having a history of paul's esophagus which she uses omeprazole 20mg daily. This controls reflux. she was previously followed by GI in [facility]. Last EGD and Colonoscopy was 12 years ago or more per patient. she reports colonoscopy had been unremarkable other than diverticulosis. no history of IBD. rest of GI ROS are unremarkable. CT 01/13 1. Loss of the haustration of the left side colon with edematous thickened wall of the rectosigmoid and distal descending colon with pericolic fat stranding and congested related vasa recta suggestive of an inflammatory condition Ulcerative colitis; however, the possibility of a neoplastic condition couldn't be ruled out. Clinical correlation is advised. 2. Hepatomegaly with steatosis. 3. Multiple bilateral small solid pulmonary nodules. An indicated chest CT is recommended for further evaluation. Allergies Allergy/AdvReac Type Severity Reaction Status Date / Time No Known Allergies Allergy Verified 01/13/25 01:50 Home Medications Medication Instructions Recorded Confirmed Type budesonide-formoterol HFA 160 2 puff inhalation BID 01/13/25 01/13/25 History mcg-4.5 mcg/actuation aerosol inhaler (Breyna) cyanocobalamin (vitamin B-12) 1,000 mcg IM MONTHLY 01/13/25 01/13/25 History 1,000 mcg/mL injection solution escitalopram oxalate 5 mg tablet 5 mg PO HS 01/13/25 01/13/25 History melatonin 1 mg tablet 2 mg PO HS 01/13/25 01/13/25 History montelukast 10 mg tablet 10 mg PO HS 01/13/25 01/13/25 History multivitamin 1 tab PO HS 01/13/25 01/13/25 History omeprazole 20 mg capsule,delayed 20 mg PO HS 01/13/25 01/13/25 History release Patient History Social History Smoking Status: Never smoker Hx Alcohol Use: No Hx Substance Use: No Preferred Language: Armenian Communication Ability: Effective 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 no guarding. soft. normal bowel sounds. Psychiatric: Orientation: alert and oriented x 3 Affect: euthymic affect Results & Data Vital Signs (Past 12 Hours) Vital Signs Temp Pulse Pulse Resp BP BP Pulse Ox 01/13/25 13:41 98.2 F 88 22 126/78 98 01/13/25 11:00 93 H 25 H 96 01/13/25 10:06 106 H 01/13/25 09:45 102 H 28 H 94 01/13/25 09:00 113/54 L 01/13/25 08:54 90 21 98 01/13/25 08:30 99 H 19 94 01/13/25 08:30 113/55 L 01/13/25 08:21 90 22 98 01/13/25 08:12 96.8 F L 90 18 112/56 L 100 01/13/25 08:00 112/56 L 01/13/25 07:54 94 H 22 100 01/13/25 07:30 103/55 L 01/13/25 07:17 01/13/25 07:03 94 H 19 96 01/13/25 07:00 108/53 L 01/13/25 06:55 92 H 01/13/25 06:54 93 H 21 97 01/13/25 06:45 93 H 24 97 01/13/25 06:30 124/61 01/13/25 06:30 124/61 01/13/25 06:30 124/61 01/13/25 06:30 124/61 01/13/25 06:30 124/61 01/13/25 06:30 124/61 01/13/25 06:30 95 H 22 99 01/13/25 06:24 95 H 19 99 01/13/25 06:15 97 H 19 99 01/13/25 06:00 100/56 L 01/13/25 06:00 100/56 L 01/13/25 06:00 100/56 L 01/13/25 06:00 100/56 L 01/13/25 06:00 100/56 L 01/13/25 06:00 100/56 L 01/13/25 06:00 100/56 L 01/13/25 05:51 97 H 21 99 01/13/25 05:36 96 H 20 98 01/13/25 05:30 118/58 L 01/13/25 05:30 118/58 L 01/13/25 05:20 130/65 01/13/25 05:20 109 H 130/65 01/13/25 05:00 150/68 H 04/08/25 05:00 150/68 H 01/13/25 05:00 150/68 H 01/13/25 04:54 112 H 19 99 01/13/25 04:51 113 H 18 01/13/25 04:45 113 H 21 01/13/25 04:30 136/82 01/13/25 04:30 136/82 01/13/25 04:30 136/82 01/13/25 04:30 136/82 01/13/25 04:30 136/82 01/13/25 04:30 136/82 01/13/25 04:30 136/82 01/13/25 04:30 136/82 01/13/25 04:30 136/82 01/13/25 04:30 136/82 01/13/25 04:30 136/82 01/13/25 04:30 136/82 01/13/25 04:27 118 H 19 97 01/13/25 04:21 120 H 21 99 01/13/25 04:03 112 H 19 99 01/13/25 04:02 160/60 H 01/13/25 04:02 160/60 H 01/13/25 04:02 160/60 H 01/13/25 03:54 112 H 18 100 01/13/25 03:42 115 H 15 98 01/13/25 03:39 115 H 17 93 01/13/25 03:30 117/66 01/13/25 03:30 117/66 01/13/25 03:30 117/66 01/13/25 03:30 117/66 01/13/25 03:30 117/66 01/13/25 03:30 117/66 01/13/25 03:30 117/66 01/13/25 03:30 117/66 01/13/25 03:30 117/66 01/13/25 03:24 118 H 21 94 01/13/25 03:00 124/77 01/13/25 03:00 124/77 01/13/25 03:00 124/77 01/13/25 03:00 124/77 01/13/25 03:00 124/77 01/13/25 03:00 124/77 01/13/25 03:00 124/77 01/13/25 03:00 124/77 01/13/25 03:00 110 H 18 124/77 98 01/13/25 02:39 114 H 23 92 01/13/25 02:30 115 H 23 90 01/13/25 02:30 133/62 01/13/25 02:30 133/62 01/13/25 02:30 133/62 01/13/25 02:30 133/62 01/13/25 02:30 133/62 01/13/25 02:30 133/62 01/13/25 02:30 133/62 01/13/25 02:30 133/62 01/13/25 02:30 133/62 01/13/25 02:30 133/62 01/13/25 02:30 133/62 01/13/25 02:27 115 H 20 01/13/25 02:15 118 H 23 90 01/13/25 02:08 107 H 01/13/25 02:00 143/74 H 01/13/25 02:00 143/74 H 01/13/25 02:00 143/74 H 01/13/25 02:00 143/74 H 01/13/25 02:00 143/74 H 01/13/25 02:00 143/74 H 01/13/25 02:00 143/74 H 01/13/25 02:00 143/74 H 01/13/25 02:00 143/74 H 01/13/25 02:00 143/74 H Pulse Ox O2 Del Method O2 Del Method O2 Flow Rate O2 Flow Rate 01/13/25 13:41 Room Air 01/13/25 11:00 01/13/25 10:06 01/13/25 09:45 01/13/25 09:00 01/13/25 08:54 01/13/25 08:30 01/13/25 08:30 01/13/25 08:21 01/13/25 08:12 Nasal Cannula 2 01/13/25 08:00 01/13/25 07:54 01/13/25 07:30 01/13/25 07:17 95 Room Air 0 01/13/25 07:03 01/13/25 07:00 01/13/25 06:55 01/13/25 06:54 01/13/25 06:45 01/13/25 06:30 01/13/25 06:30 01/13/25 06:30 01/13/25 06:30 01/13/25 06:30 01/13/25 06:30 01/13/25 06:30 01/13/25 06:24 01/13/25 06:15 01/13/25 06:00 01/13/25 06:00 01/13/25 06:00 01/13/25 06:00 01/13/25 06:00 01/13/25 06:00 01/13/25 06:00 01/13/25 05:51 01/13/25 05:36 01/13/25 05:30 01/13/25 05:30 01/13/25 05:20 01/13/25 05:20 01/13/25 05:00 01/13/25 05:00 01/13/25 05:00 01/13/25 04:54 01/13/25 04:51 01/13/25 04:45 01/13/25 04:30 01/13/25 04:30 01/13/25 04:30 01/13/25 04:30 01/13/25 04:30 01/13/25 04:30 01/13/25 04:30 01/13/25 04:30 01/13/25 04:30 01/13/25 04:30 01/13/25 04:30 01/13/25 04:30 01/13/25 04:27 01/13/25 04:21 01/13/25 04:03 01/13/25 04:02 01/13/25 04:02 01/13/25 04:02 01/13/25 03:54 Nasal Cannula 2 01/13/25 03:42 01/13/25 03:39 01/13/25 03:30 01/13/25 03:30 01/13/25 03:30 01/13/25 03:30 01/13/25 03:30 01/13/25 03:30 01/13/25 03:30 01/13/25 03:30 01/13/25 03:30 01/13/25 03:24 01/13/25 03:00 01/13/25 03:00 01/13/25 03:00 01/13/25 03:00 01/13/25 03:00 01/13/25 03:00 01/13/25 03:00 01/13/25 03:00 01/13/25 03:00 Room Air 01/13/25 02:39 01/13/25 02:30 01/13/25 02:30 01/13/25 02:30 01/13/25 02:30 01/13/25 02:30 01/13/25 02:30 01/13/25 02:30 01/13/25 02:30 01/13/25 02:30 01/13/25 02:30 01/13/25 02:30 01/13/25 02:30 01/13/25 02:27 01/13/25 02:15 01/13/25 02:08 01/13/25 02:00 01/13/25 02:00 01/13/25 02:00 01/13/25 02:00 01/13/25 02:00 01/13/25 02:00 01/13/25 02:00 01/13/25 02:00 01/13/25 02:00 01/13/25 02:00 Laboratory Results Laboratory Results - last 48 hr 01/13/25 01/13/25 01/13/25 00:56 02:15 03:56 WBC 18.73 H RBC 4.74 Hgb 11.9 L Hct 38.1 MCV 80.4 MCH 25.1 MCHC 31.2 L RDW Std Deviation 50.5 H RDW Coeff of Lisa 17.2 H Plt Count 443 H MPV 10.2 Immature Gran % (Auto) 0.4 Neut % (Auto) 89.6 Lymph % (Auto) 5.7 [place] % (Auto) 3.9 Eos % (Auto) 0.1 Baso % (Auto) 0.3 Neut # (Auto) 16.80 H Lymph # (Auto) 1.06 L [place] # (Auto) 0.73 H Eos # (Auto) 0.01 Baso # (Auto) 0.05 Immature Gran # (Auto) 0.08 Sodium 139 Potassium 3.8 Chloride 104 Carbon Dioxide 28 Anion Gap 7 BUN 26 H Creatinine 0.89 Est Cr Clr Drug Dosing 45.3 eGFR 63.10 BUN/Creatinine Ratio 29.2 H Glucose 156 H Estimat Average Glucose 128 Hemoglobin A1c 6.1 H Lactate Calcium 9.5 Magnesium 1.8 Total Bilirubin 0.3 AST 17 ALT 12 Alkaline Phosphatase 71 Total Protein 7.6 Albumin 4.6 Globulin 3.0 Albumin/Globulin Ratio 1.5 Lipase 28 Urine Color Yellow Urine Appearance Clear Urine pH 5.5 Ur Specific [place] 1.041 H Urine Protein 2+ H Urine Glucose (UA) Negative Urine Ketones Trace H Urine Blood Trace H Urine Nitrite Negative Urine Bilirubin Negative Urine Urobilinogen Negative Ur Leukocyte Esterase Negative Urine WBC (Auto) 0-5 Urine RBC (Auto) 3-5 H U Hyaline Cast (Auto) 0-2 U Epithel Cells (Auto) 0-2 Urine Bacteria (Auto) None Seen Stl C. cayetanensis PCR Stool Rotavirus A PCR Stl Adenov F PCR Stool Astrovirus (PCR) Stool Campylobacter PCR Stl C. diff Tox B Gene Stool Cryptosporidium PCR Stl E.coli Shiga Tox PCR Stl Enterotoxigenic E PCR Stool EPEC (PCR) Stool EAEC (PCR) Stl E. histolytica PCR Stool Giardia Lamblia PCR Stool Salmonella PCR Stool Sapovirus (PCR) Stl P. shigelloides PCR Stl Shigella/EIEC PCR St Y.enterocolitica PCR Stool Vibrio (PCR) Stl Vibrio cholerae PCR Stl Norovirus GI/GII PCR Blood Type Antibody Screen 01/13/25 01/13/25 01/13/25 04:07 05:34 09:30 WBC RBC Hgb 10.3 L Hct 33.1 L MCV MCH MCHC RDW Std Deviation RDW Coeff of Lisa Plt Count MPV Immature Gran % (Auto) Neut % (Auto) Lymph % (Auto) [place] % (Auto) Eos % (Auto) Baso % (Auto) Neut # (Auto) Lymph # (Auto) [place] # (Auto) Eos # (Auto) Baso # (Auto) Immature Gran # (Auto) Sodium Potassium Chloride Carbon Dioxide Anion Gap BUN Creatinine Est Cr Clr Drug Dosing eGFR BUN/Creatinine Ratio Glucose Estimat Average Glucose Hemoglobin A1c Lactate 1.0 Calcium Magnesium Total Bilirubin AST ALT Alkaline Phosphatase Total Protein Albumin Globulin Albumin/Globulin Ratio Lipase Urine Color Urine Appearance Urine pH Ur Specific [place] Urine Protein Urine Glucose (UA) Urine Ketones Urine Blood Urine Nitrite Urine Bilirubin Urine Urobilinogen Ur Leukocyte Esterase Urine WBC (Auto) Urine RBC (Auto) U Hyaline Cast (Auto) U Epithel Cells (Auto) Urine Bacteria (Auto) Stl C. cayetanensis PCR Not Detected Stool Rotavirus A PCR Not Detected Stl Adenov F 40/41 PCR Not Detected Stool Astrovirus (PCR) Not Detected Stool Campylobacter PCR Not Detected Stl C. diff Tox B Gene Negative Cdiff Gene Stool Cryptosporidium PCR Not Detected Stl E.coli Shiga Tox PCR Not Detected Stl Enterotoxigenic E PCR Not Detected Stool EPEC (PCR) Not Detected Stool EAEC (PCR) Not Detected Stl E. histolytica PCR Not Detected Stool Giardia Lamblia PCR Not Detected Stool Salmonella PCR Not Detected Stool Sapovirus (PCR) Not Detected Stl P. shigelloides PCR Not Detected Stl Shigella/EIEC PCR Not Detected St Y.enterocolitica PCR Not Detected Stool Vibrio (PCR) Not Detected Stl Vibrio cholerae PCR Not Detected Stl Norovirus GI/GII PCR Not Detected Blood Type O Positive Antibody Screen NEGATIVE Diagnostic Findings Abdomen/Pelvis CT 01/13/25 01:02 EXAM: CT abd pelvis IV con only CLINICAL HISTORY: Lower abdominal pain. TECHNIQUE: CT of the abdomen and pelvis was performed with IV contrast, with the following protocol: axial images with reconstructed coronal and sagittal images. One of the following dose reduction techniques was utilized for this exam: Automated exposure control, adjustment of the mA and/or kV according to patient size, and use of iterative reconstruction. CTDI: 21.07 mGy and DLP: 954.37 mGy-cm. COMPARISON: No prior studies available for comparison. FINDINGS: Lower lung cuts show Bilateral basal fibrotic bands. Multiple small solid nodules are seen at the anterior segment of the right lower lobe, 7mm, and the posterior segment of the left lower lobe 8.8 mm. Abdomen: Liver: Increased in size 18.8 cm, normal in shape, and decreased density. No focal lesions, cysts, or masses were identified. Hepatic vasculature and biliary ducts are unremarkable. Gallbladder and Biliary System: The gallbladder is normal in size and shape. No wall thickening, pericholecystic fluid, or gallstones were identified. The common bile duct is normal in caliber without dilation. Pancreas: The pancreatic head, body, and tail are visualized and appear normal in size and density. No pancreatic masses or calcifications were noted. The pancreatic duct is not dilated. Spleen: Normal in size, shape, and density. No splenic lesions or masses were identified. Appendix: The appendix is normal in size without periappendiceal fat stranding and without an appendicolith. No evidence of appendiceal abscess or perforation. Kidneys and Adrenal Glands: Both kidneys are normal in size, shape, and position with bilateral small multiple cortical cysts. Cortical thickness is within normal limits. No renal calculi or hydronephrosis. Adrenal glands are unremarkable with no evidence of masses or hyperplasia. Pelvis: Urinary Bladder: Normal in contour and wall thickness. No intraluminal lesions were identified. Uterus: Non-visualized may be surgically removed. Ovaries: Not well visualized, but no gross abnormalities noted. Vagina: Normal in contour and wall thickness. Cervix: No evidence of mass or abnormal thickening. Peritoneal and Retroperitoneal Structures: No free fluid or abnormal fluid collections were identified within the abdomen or pelvis. No lymphadenopathy was noted. Bowel: Loss of haustration of the left side colon with a long segment of increased mural thickness of the distal part of the descending colon and rectosigmoid colons with possible luminal attenuation and stranding of the pericolic fat planes and congestion of the related vasa recta. The visualized bowel loops are normal in caliber and appearance. No evidence of bowel obstruction. Bones and Soft Tissues: Spondylodegenerative changes of the lumbar spine with multilevel disc space narrowing. Mild scoliosis of the lumbar spine with convexity to the right side. The pelvic bones and soft tissues are unremarkable. No fractures or abnormal masses were identified. IMPRESSION: 1. Loss of the haustration of the left side colon with edematous thickened wall of the rectosigmoid and distal descending colon with pericolic fat stranding and congested related vasa recta suggestive of an inflammatory condition Ulcerative colitis; however, the possibility of a neoplastic condition couldn't be ruled out. Clinical correlation is advised. 2. Hepatomegaly with steatosis. 3. Multiple bilateral small solid pulmonary nodules. An indicated chest CT is recommended for further evaluation. Electronically signed by Alessandro Tineo 01-13-2025 03:02 AM Coding Level of Care Code 02299 INT INP/OBS CARE MIN Diagnoses Colitis K52.9
[2025-01-13] MEDS: MoRPHine SULFATE 2 MG/ML CARP IV PRN (14:25)
[2025-01-13] MEDS ORDERED: PANTOprazole 40 MG/10 ML SYR IV SCH (21:00)
[2025-01-13] MEDS: MELATONIN 3 MG TAB PO SCH (21:16)
[2025-01-13] MEDS: ESCITALOPRAM OXALATE 10 MG TAB PO SCH (21:16)
[2025-01-13] MEDS: MONTELUKAST SODIUM 10 MG TABLET PO SCH (21:18)
[2025-01-13] MEDS: PANTOprazole 40 MG TAB PO SCH (21:18)
[2025-01-13] MEDS ORDERED: SIMETHICONE 80 MG CHEW PO PRN (21:39)
[2025-01-13] MEDS: hydrOXYzine HCl 10 MG TAB PO PRN (21:44)
[2025-01-13] MEDS: SIMETHICONE 80 MG CHEW PO ONE (22:19)
[2025-01-13] MEDS: MULTIVITAMIN TAB PO SCH (22:19)
[2025-01-14 06:11] LABS: Hemoglobin 8.7 g/dl (12.0-16.0); Mean Corpuscular Hgb Conc 31.1 g/dL (32.0-36.0); Mean Corpuscular Volume 80.5 fL (80.0-100.0); Platelet Count 293 K/uL (130-400); RDW Coefficient of Variation 17.7 % (11.5-14.5); RDW Standard Deviation 52.2 fL (36.4-46.3); Red Blood Count 3.48 M/uL (4.20-5.40); White Blood Count 8.16 K/ul (4.8-10.8)
[2025-01-14 06:34] LABS: BUN Creatinine Ratio 12.3 (10-20); Creatinine Clr Calc Pharmacy 54.4 ml/min; Magnesium 1.9 mg/dl (1.7-2.4); Phosphorus 2.2 mg/dl (2.5-4.9); Potassium 3.4 mmol/L (3.5-5.1)
[2025-01-14] MEDS ORDERED: MoRPHine SULFATE 2 MG/ML CARP IV PRN (07:32)
[2025-01-14] MEDS ORDERED: oxyCODONE HCL IR 5 MG TAB (IMMEDIATE RELEASE) PO PRN (07:32)
--- NOTE | 2025-01-14 09:24 | Hospitalist Progress Note ---
Date of Service January 14, 2025 Assessment & Plan (1) Colitis: Plan Possible Sepsis secondary to colitis Had leukocytosis, tachycardia on presentation CT abd/Pelvis noted signs suggestive of colitis in rectosigmoid/descending colon. Leukocytosis resolved Anemia, unclear if chronic or acute on chronic as no previous Hb seen on both [employer] and [email or web address] Hb dropped from 11.9 on admission to 8.7 This is likely more dilutional as all cell lines dropped but cannot rule out acute blood loss anemia as well due to blood in stool Monitor Hb GI evaluation noted Possible ischemic vs inflammatory colitis Patient will need to follow up with GI outpatient for colonoscopy Currently on zosyn. Deescalate to unasyn Hypokalemia Hypophosphatemia Replete and monitor COPD, Not in acute exacerbation Carcinoid lung tumor status post surgery CT abd noted lung nodules. Patient already aware of this and reported she has been getting treatment and surveillance for htis GERD, on PPI Prediabetes HbA1c is 6.1 Diet management DVT prophylaxis. SCDs re: LGIB Full code Patient son requesting updates providers. Mr. Juarez López, contact #[phone]. 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 recently about losing her social security since [facility] and also had lost her brother recently Denied any fever, chills Denied other complaints Physical Exam Constitutional: + well hydrated; no acute distress Eyes: PERRL, conjunctivae normal, anicteric sclerae ENMT: external ear and nose normal, oropharynx normal Respiratory: normal respiratory effort, lungs clear to auscultation Cardiovascular: Rate/Rhythm: regular rate and regular rhythm Gastrointestinal (Abdomen): Soft, not distended, LLQ tenderness, normal bowel sounds Musculoskeletal: no cyanosis or clubbing, extremities motor strength 5/5 Neurologic: PERRL, EOMI, accommodation nl, no face palsy, no dysarthria Psychiatric: A+Ox3, euthymic affect Results & Data Results & Data Vital Signs (Past 12 Hours) Vital Signs Temp Pulse Pulse Resp BP BP Pulse Ox 01/14/25 07:29 36.9 C 88 16 141/78 H 95 01/14/25 07:11 84 01/14/25 04:17 36.9 C 78 20 98/57 L 92 01/14/25 00:00 86 01/13/25 23:57 37.1 C 81 20 101/63 92 O2 Del Method 01/14/25 07:29 Room Air 01/14/25 07:11 01/14/25 04:17 Room Air 01/14/25 00:00 01/13/25 23:57 Room Air Laboratory Results Abnormal lab results 01/14/25 Range/Units 05:41 RBC 3.48 L (4.20-5.40) M/uL Hgb 8.7 L (12.0-16.0) g/dl Hct 28.0 L (37.0-47.0) % MCHC 31.1 L (32.0-36.0) g/dL RDW Std Deviation 52.2 H (36.4-46.3) fL RDW Coeff of Lisa 17.7 H (11.5-14.5) % Potassium 3.4 L (3.5-5.1) mmol/L Chloride 110 H (98-107) mmol/L Glucose 102 H (70-99(Fasting)) mg/dl Calcium 8.0 L (8.6-10.3) mg/dl Phosphorus 2.2 L (2.5-4.9) mg/dl
--- NOTE | 2025-01-14 10:37 | Gastroenterology Progress Note ---
Date of Service January 14, 2025 Assessment & Plan (1) Colitis: Plan Clinical picture and imaging most consistent with ischemic colitis - we had reviewed this with radiology yesterday. Continue with IV antibiotics. she is feeling better and seems to be improving. Admission and Anticipated Discharge Date Admission Date: January 13, 2025 Supervising Physician Co-Signing Physician Notes I saw and examined this patient with our nurse practitioner and agree with her assessment and plan. Feeling better today less abdominal pain still some lower abdominal tenderness. Course consistent with resolving ischemic colitis. Would continue clear liquids today and if continues to improve can advance her diet tomorrow. Subjective Patient tells me that she feels much better today. she did pass some old blood in her stools, but much improved from before. tolerating breakfast this morning. Review of Systems Review of Systems: All systems reviewed & are unremarkable except as noted in HPI & below Physical Exam Constitutional: WD/WN, vitals as above Respiratory: normal respiratory effort, lungs clear to auscultation Cardiovascular: Rate/Rhythm: regular rate and regular rhythm Gastrointestinal (Abdomen): LLQ tenderness to palpation, soft, no guarding. normal bowel sounds. Psychiatric: Orientation: alert and oriented x 3 Affect: euthymic affect Results & Data Results & Data Vital Signs (Past 12 Hours) Vital Signs Temp Pulse Pulse Resp BP BP Pulse Ox 01/14/25 07:29 98.4 F 88 16 141/78 H 95 01/14/25 07:11 84 01/14/25 04:17 98.4 F 78 20 98/57 L 92 01/14/25 00:00 86 01/13/25 23:57 98.8 F 81 20 101/63 92 O2 Del Method 01/14/25 07:29 Room Air 01/14/25 07:11 01/14/25 04:17 Room Air 01/14/25 00:00 01/13/25 23:57 Room Air Laboratory Results Laboratory Results - last 48 hr 01/13/25 01/13/25 01/13/25 00:56 02:15 03:56 WBC 18.73 H RBC 4.74 Hgb 11.9 L Hct 38.1 MCV 80.4 MCH 25.1 MCHC 31.2 L RDW Std Deviation 50.5 H RDW Coeff of Lisa 17.2 H Plt Count 443 H MPV 10.2 Immature Gran % (Auto) 0.4 Neut % (Auto) 89.6 Lymph % (Auto) 5.7 [place] % (Auto) 3.9 Eos % (Auto) 0.1 Baso % (Auto) 0.3 Neut # (Auto) 16.80 H Lymph # (Auto) 1.06 L [place] # (Auto) 0.73 H Eos # (Auto) 0.01 Baso # (Auto) 0.05 Immature Gran # (Auto) 0.08 Sodium 139 Potassium 3.8 Chloride 104 Carbon Dioxide 28 Anion Gap 7 BUN 26 H Creatinine 0.89 Est Cr Clr Drug Dosing 45.3 eGFR 63.10 BUN/Creatinine Ratio 29.2 H Glucose 156 H Estimat Average Glucose 128 Hemoglobin A1c 6.1 H Lactate Calcium 9.5 Phosphorus Magnesium 1.8 Total Bilirubin 0.3 AST 17 ALT 12 Alkaline Phosphatase 71 Total Protein 7.6 Albumin 4.6 Globulin 3.0 Albumin/Globulin Ratio 1.5 Lipase 28 Urine Color Yellow Urine Appearance Clear Urine pH 5.5 Ur Specific [place] 1.041 H Urine Protein 2+ H Urine Glucose (UA) Negative Urine Ketones Trace H Urine Blood Trace H Urine Nitrite Negative Urine Bilirubin Negative Urine Urobilinogen Negative Ur Leukocyte Esterase Negative Urine WBC (Auto) 0-5 Urine RBC (Auto) 3-5 H U Hyaline Cast (Auto) 0-2 U Epithel Cells (Auto) 0-2 Urine Bacteria (Auto) None Seen Stl C. cayetanensis PCR Stool Rotavirus A PCR Stl Adenov F 40/41 PCR Stool Astrovirus (PCR) Stool Campylobacter PCR Stl C. diff Tox B Gene Stool Cryptosporidium PCR Stl E.coli Shiga Tox PCR Stl Enterotoxigenic E PCR Stool EPEC (PCR) Stool EAEC (PCR) Stl E. histolytica PCR Stool Giardia Lamblia PCR Stool Salmonella PCR Stool Sapovirus (PCR) Stl P. shigelloides PCR Stl Shigella/EIEC PCR St Y.enterocolitica PCR Stool Vibrio (PCR) Stl Vibrio cholerae PCR Stl Norovirus GI/GII PCR Blood Type Antibody Screen 01/13/25 01/13/25 01/13/25 04:07 05:34 09:30 WBC RBC Hgb 10.3 L Hct 33.1 L MCV MCH MCHC RDW Std Deviation RDW Coeff of Lisa Plt Count MPV Immature Gran % (Auto) Neut % (Auto) Lymph % (Auto) [place] % (Auto) Eos % (Auto) Baso % (Auto) Neut # (Auto) Lymph # (Auto) [place] # (Auto) Eos # (Auto) Baso # (Auto) Immature Gran # (Auto) Sodium Potassium Chloride Carbon Dioxide Anion Gap BUN Creatinine Est Cr Clr Drug Dosing eGFR BUN/Creatinine Ratio Glucose Estimat Average Glucose Hemoglobin A1c Lactate 1.0 Calcium Phosphorus Magnesium Total Bilirubin AST ALT Alkaline Phosphatase Total Protein Albumin Globulin Albumin/Globulin Ratio Lipase Urine Color Urine Appearance Urine pH Ur Specific [place] Urine Protein Urine Glucose (UA) Urine Ketones Urine Blood Urine Nitrite Urine Bilirubin Urine Urobilinogen Ur Leukocyte Esterase Urine WBC (Auto) Urine RBC (Auto) U Hyaline Cast (Auto) U Epithel Cells (Auto) Urine Bacteria (Auto) Stl C. cayetanensis PCR Not Detected Stool Rotavirus A PCR Not Detected Stl Adenov F 40/41 PCR Not Detected Stool Astrovirus (PCR) Not Detected Stool Campylobacter PCR Not Detected Stl C. diff Tox B Gene Negative Cdiff Gene Stool Cryptosporidium PCR Not Detected Stl E.coli Shiga Tox PCR Not Detected Stl Enterotoxigenic E PCR Not Detected Stool EPEC (PCR) Not Detected Stool EAEC (PCR) Not Detected Stl E. histolytica PCR Not Detected Stool Giardia Lamblia PCR Not Detected Stool Salmonella PCR Not Detected Stool Sapovirus (PCR) Not Detected Stl P. shigelloides PCR Not Detected Stl Shigella/EIEC PCR Not Detected St Y.enterocolitica PCR Not Detected Stool Vibrio (PCR) Not Detected Stl Vibrio cholerae PCR Not Detected Stl Norovirus GI/GII PCR Not Detected Blood Type O Positive Antibody Screen NEGATIVE 01/14/25 05:41 WBC 8.16 RBC 3.48 L Hgb 8.7 L Hct 28.0 L MCV 80.5 MCH 25.0 MCHC 31.1 L RDW Std Deviation 52.2 H RDW Coeff of Lisa 17.7 H Plt Count 293 MPV 10.0 Immature Gran % (Auto) Neut % (Auto) Lymph % (Auto) [place] % (Auto) Eos % (Auto) Baso % (Auto) Neut # (Auto) Lymph # (Auto) [place] # (Auto) Eos # (Auto) Baso # (Auto) Immature Gran # (Auto) Sodium 141 Potassium 3.4 L Chloride 110 H Carbon Dioxide 28 Anion Gap 3 BUN 9 Creatinine 0.73 Est Cr Clr Drug Dosing 54.4 eGFR 80.04 BUN/Creatinine Ratio 12.3 Glucose 102 H Estimat Average Glucose Hemoglobin A1c Lactate Calcium 8.0 L Phosphorus 2.2 L Magnesium 1.9 Total Bilirubin AST ALT Alkaline Phosphatase Total Protein Albumin Globulin Albumin/Globulin Ratio Lipase Urine Color Urine Appearance Urine pH Ur Specific [place] Urine Protein Urine Glucose (UA) Urine Ketones Urine Blood Urine Nitrite Urine Bilirubin Urine Urobilinogen Ur Leukocyte Esterase Urine WBC (Auto) Urine RBC (Auto) U Hyaline Cast (Auto) U Epithel Cells (Auto) Urine Bacteria (Auto) Stl C. cayetanensis PCR Stool Rotavirus A PCR Stl Adenov F PCR Stool Astrovirus (PCR) Stool Campylobacter PCR Stl C. diff Tox B Gene Stool Cryptosporidium PCR Stl E.coli Shiga Tox PCR Stl Enterotoxigenic E PCR Stool EPEC (PCR) Stool EAEC (PCR) Stl E. histolytica PCR Stool Giardia Lamblia PCR Stool Salmonella PCR Stool Sapovirus (PCR) Stl P. shigelloides PCR Stl Shigella/EIEC PCR St Y.enterocolitica PCR Stool Vibrio (PCR) Stl Vibrio cholerae PCR Stl Norovirus GI/GII PCR Blood Type Antibody Screen Coding Level of Care Code 91897 SUB INP/OBS CARE 11/01MIN Diagnoses Colitis K52.9
[2025-01-14] MEDS: POT PHOSPHATE MONOBASIC W/ SOD TAB PO SCH (12:25)
[2025-01-14] MEDS: AMPICILLIN/SULBACTAM SOD 3,000 MG/100 ML BAG IV SCH (12:48)
[2025-01-14] MEDS: LOPERAMIDE HCL 2 MG CAP PO PRN (19:01)
[2025-01-15 06:31] LABS: Hematocrit (blood only) 30.1 % (37.0-47.0); Hemoglobin 9.3 g/dl (12.0-16.0); Mean Corpuscular Hemoglobin 24.8 pg (25.0-34.0); Mean Corpuscular Hgb Conc 30.9 g/dL (32.0-36.0); Mean Corpuscular Volume 80.3 fL (80.0-100.0); Mean Platelet Volume 10.5 fL (9.4-12.4); Platelet Count 315 K/uL (130-400); RDW Coefficient of Variation 17.4 % (11.5-14.5); RDW Standard Deviation 51.6 fL (36.4-46.3); Red Blood Count 3.75 M/uL (4.20-5.40); White Blood Count 6.72 K/ul (4.8-10.8)
[2025-01-15 06:57] LABS: BUN Creatinine Ratio 8.6 (10-20); Calcium 8.3 mg/dl (8.6-10.3); Creatinine Clr Calc Pharmacy 56.1 ml/min; Magnesium 1.9 mg/dl (1.7-2.4); Phosphorus 2.4 mg/dl (2.5-4.9); Potassium 3.2 mmol/L (3.5-5.1)
[2025-01-15] MEDS: LOPERAMIDE HCL 2 MG CAP PO PRN (09:04)
--- NOTE | 2025-01-15 09:45 | Hospitalist Progress Note ---
Date of Service January 15, 2025 Assessment & Plan (1) Colitis: Plan Possible Sepsis secondary to colitis Had leukocytosis, tachycardia on presentation CT abd/Pelvis noted signs suggestive of colitis in rectosigmoid/descending colon. Leukocytosis resolved Anemia, unclear if chronic or acute on chronic as no previous Hb seen on both [email or web address] and [employer] Hb dropped from 11.9 on admission to 8.7 This is likely more dilutional as all cell lines dropped but cannot rule out acute blood loss anemia as well due to blood in stool Hb is 9.3 today GI evaluation noted Possible ischemic vs inflammatory colitis Patient will need to follow up with GI outpatient for colonoscopy Continue unasyn Patient wanted imodium. 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 Patient already aware of this and reported she has been getting treatment and surveillance for this GERD, on PPI Prediabetes HbA1c is 6.1 Diet management DVT prophylaxis. SCDs re: LGIB Full code Patient son requesting updates providers. Mr. Juarez López, contact #[phone]. I spent a total of 50 minutes coordinating, documenting and providing care for this patient excluding time spent in performance of separately billed services Admission and Anticipated Discharge Date Admission Date: January 13, 2025 Subjective Patient seen and examined Reports abd pain is much improved However reports lots of diarrhea since yesterday and overnight. Denied fever and chills Physical Exam Constitutional: + well hydrated; no acute distress Eyes: PERRL, conjunctivae normal, anicteric sclerae ENMT: external ear and nose normal, oropharynx normal Respiratory: normal respiratory effort, lungs clear to auscultation Cardiovascular: Rate/Rhythm: regular rate and regular rhythm Gastrointestinal (Abdomen): normal bowel sounds, soft, nontender, no hepatosplenomegaly Musculoskeletal: no cyanosis or clubbing, extremities motor strength 5/5 Neurologic: PERRL, EOMI, accommodation nl, no face palsy, no dysarthria Psychiatric: A+Ox3, euthymic affect Results & Data Results & Data Vital Signs (Past 12 Hours) Vital Signs Temp Pulse Pulse Resp BP BP Pulse Ox 01/15/25 07:34 36.5 C 66 20 120/74 95 01/15/25 03:17 36.7 C 59 L 18 129/73 97 01/14/25 23:04 36.8 C 67 18 137/71 95 01/14/25 22:54 77 O2 Del Method 01/15/25 07:34 Room Air 01/15/25 03:17 Room Air 01/14/25 23:04 Room Air 01/14/25 22:54 Laboratory Results Abnormal lab results 01/15/25 Range/Units 05:30 RBC 3.75 L (4.20-5.40) M/uL Hgb 9.3 L (12.0-16.0) g/dl Hct 30.1 L (37.0-47.0) % MCH 24.8 L (25.0-34.0) pg MCHC 30.9 L (32.0-36.0) g/dL RDW Std Deviation 51.6 H (36.4-46.3) fL RDW Coeff of Lisa 17.4 H (11.5-14.5) % Potassium 3.2 L (3.5-5.1) mmol/L Chloride 109 H (98-107) mmol/L BUN/Creatinine Ratio 8.6 L (10-20) Calcium 8.3 L (8.6-10.3) mg/dl Phosphorus 2.4 L (2.5-4.9) mg/dl
--- NOTE | 2025-01-15 10:19 | Gastroenterology Progress Note ---
Date of Service January 15, 2025 Assessment & Plan (1) Colitis: Plan Pain improved, but she is having several loose stools a day. I reviewed this case with Dr. Akhtar. Would recommend avoiding imodium at this time. Will continue to follow. Admission and Anticipated Discharge Date Admission Date: January 13, 2025 Supervising Physician Co-Signing Physician Notes I saw and examined this patient with our nurse practitioner and agree with her assessment and plan. Likely resolving ischemic colitis. Would avoid use of Imodium or Lomotil for her diarrhea. Ultimately this should resolve as the colitis heals. If continues to do well can consider advancing diet in AM. Subjective Patient had several episodes of loose stools since yesterday. no blood in the stools or melena. abdominal pain is improved. rest of GI ros are unremarkable. Review of Systems Review of Systems: All systems reviewed & are unremarkable except as noted in HPI & below Physical Exam Constitutional: WD/WN, vitals as above Respiratory: normal respiratory effort, lungs clear to auscultation Cardiovascular: Rate/Rhythm: regular rate and regular rhythm Gastrointestinal (Abdomen): normal bowel sounds, soft, nontender, no hepatosplenomegaly Psychiatric: Orientation: alert and oriented x 3 Affect: euthymic affect Results & Data Results & Data Vital Signs (Past 12 Hours) Vital Signs Temp Pulse Pulse Resp BP BP Pulse Ox 01/15/25 10:00 71 01/15/25 07:34 97.7 F 66 20 120/74 95 01/15/25 03:17 98.1 F 59 L 18 129/73 97 01/14/25 23:04 98.2 F 67 18 137/71 95 01/14/25 22:54 77 O2 Del Method 01/15/25 10:00 01/15/25 07:34 Room Air 01/15/25 03:17 Room Air 01/14/25 23:04 Room Air 01/14/25 22:54 Laboratory Results Laboratory Results - last 48 hr 01/14/25 01/15/25 05:41 05:30 WBC 8.16 6.72 RBC 3.48 L 3.75 L Hgb 8.7 L 9.3 L Hct 28.0 L 30.1 L MCV 80.5 80.3 MCH 25.0 24.8 L MCHC 31.1 L 30.9 L RDW Std Deviation 52.2 H 51.6 H RDW Coeff of Lisa 17.7 H 17.4 H Plt Count 293 315 MPV 10.0 10.5 Sodium 141 143 Potassium 3.4 L 3.2 L Chloride 110 H 109 H Carbon Dioxide 28 30 Anion Gap 3 4 BUN 9 6 Creatinine 0.73 0.70 Est Cr Clr Drug Dosing 54.4 56.1 eGFR 80.04 84.17 BUN/Creatinine Ratio 12.3 8.6 L Glucose 102 H 90 Calcium 8.0 L 8.3 L Phosphorus 2.2 L 2.4 L Magnesium 1.9 1.9 Coding Level of Care Code 58326 SUB INP/OBS CARE 11/01MIN Diagnoses Colitis K52.9
[2025-01-16 06:47] LABS: Hematocrit (blood only) 30.6 % (37.0-47.0); Hemoglobin 9.7 g/dl (12.0-16.0); Mean Corpuscular Hemoglobin 25.1 pg (25.0-34.0); Mean Corpuscular Hgb Conc 31.7 g/dL (32.0-36.0); Mean Corpuscular Volume 79.3 fL (80.0-100.0); Mean Platelet Volume 9.9 fL (9.4-12.4); Platelet Count 304 K/uL (130-400); RDW Coefficient of Variation 17.3 % (11.5-14.5); RDW Standard Deviation 50.1 fL (36.4-46.3); Red Blood Count 3.86 M/uL (4.20-5.40); White Blood Count 6.37 K/ul (4.8-10.8)
[2025-01-16 07:08] LABS: BUN Creatinine Ratio 12.5 (10-20); Calcium 8.5 mg/dl (8.6-10.3); Creatinine Clr Calc Pharmacy 56.8 ml/min; Magnesium 1.9 mg/dl (1.7-2.4); Phosphorus 2.9 mg/dl (2.5-4.9); Potassium 3.1 mmol/L (3.5-5.1)
[2025-01-16] MEDS: POTASSIUM CHLORIDE CRTAB 20 MEQ TABCR PO STA (08:54)
[2025-01-16 11:36] VITALS: TEMP 98.1
--- NOTE | 2025-01-16 12:46 | Gastroenterology Progress Note ---
Date of Service January 16, 2025 Assessment & Plan (1) Colitis: Plan: Patient tell me she is feeling much better. Diarrhea and abdominal pain is improved. Admission and Anticipated Discharge Date Admission Date: January 13, 2025 Supervising Physician Co-Signing Physician Notes I saw and examined this patient with our nurse practitioner and agree with her assessment and plan. Clinically improving resolving diarrhea and abdominal pain. Hospital course consistent with resolving ischemic colitis. Okay for discharge today. Follow-up in GI office in the next few weeks. Subjective patient is feeling much better today. pain has resolved and diarrhea is improving. she has less urgency. she is tolerating her diet. rest of GI ROS are unremarkable. Review of Systems Review of Systems: All systems reviewed & are unremarkable except as noted in HPI & below Physical Exam Constitutional: WD/WN, vitals as above Respiratory: normal respiratory effort, lungs clear to auscultation Cardiovascular: Rate/Rhythm: regular rate and regular rhythm Gastrointestinal (Abdomen): normal bowel sounds, soft, nontender, no hepatosplenomegaly Psychiatric: Orientation: alert and oriented x 3 Affect: euthymic affect Results & Data Results & Data Vital Signs (Past 12 Hours) Vital Signs Temp Pulse Pulse Resp BP Pulse Ox O2 Del Method 01/16/25 11:35 98.1 F 75 18 123/71 95 Room Air 01/16/25 07:54 97.9 F 85 16 144/77 H 97 Room Air 01/16/25 05:42 66 01/16/25 03:49 97.9 F 92 H 18 134/74 97 Room Air Coding Level of Care Code 30876 SUB INP/OBS CARE 11/01MIN Diagnoses Colitis K52.9
--- NOTE | 2025-01-16 15:43 | Discharge Summary ---
Date of Service January 16, 2025 Admission HPI Per Admitting Provider History obtained from patient, family, and records. Medical history significant for COPD, carcinoid lung tumor status post surgery, GERD, diverticulosis/polyps as per patient, mood disorder, past tobacco abuse. Few months ago patient noted some change in bowel habits without unusual weight loss. Last night, patient had achy left-sided abdominal pain with bloody diarrhea. Not sure about sick contacts/antibiotic Rx/out-of-town travel. Denies chest pain, SOB. Zosyn administered at the ER. 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 Exam Per Admitting Provider GENERAL: Comfortable, pleasant, looks younger than stated age, no respiratory distress SKIN: Normal color, warm HEENT: Bespectacled, pink palpebral conjunctivae, no ptosis, dry buccal mucosa NECK : Supple, no tenderness CHEST : CTA, no tenderness HEART : Tachycardic, no obvious murmurs ABDOMEN: Some distention, left-sided abdominal tenderness EXTREMITIES : No LE swelling/tenderness, palpable pulses, no other conspicuous deformities noted NEUROLOGIC : Coherent, no facial asymmetry, no other gross focality Principal Diagnosis Sepsis Colitis Discharge Exam Constitutional + well hydrated; no acute distress Eyes PERRL, conjunctivae normal, anicteric sclerae ENMT external ear and nose normal, oropharynx normal Respiratory normal respiratory effort, lungs clear to auscultation Cardiovascular Rate/Rhythm: regular rate and regular rhythm Gastrointestinal (Abdomen) normal bowel sounds, soft, nontender, no hepatosplenomegaly Musculoskeletal no cyanosis or clubbing, extremities motor strength 5/5 Neurologic PERRL, EOMI, accommodation nl, no face palsy, no dysarthria Psychiatric A+Ox3, euthymic affect Discharge Data Allergies Allergy/AdvReac Type Severity Reaction Status Date / Time No Known Allergies Allergy Verified 01/13/25 01:50 Consultations 01/13/25 03:20 ED Decision to Admit Stat 01/13/25 13:23 Consult Gastroenterology Routine Ordered Studies 01/13/25 01:02 CT Abd and Pelvis [CT abd pelvis IV con only] Stat Hospital Course (1) Colitis: Plan Possible Sepsis secondary to colitis Had leukocytosis, tachycardia on presentation CT abd/Pelvis noted signs suggestive of colitis in rectosigmoid/descending colon. Patient was evaluated by GI She was started Unasyn. Leukocytosis have resolved Abd pain resolved. Diarrhea is much improved Patient need to follow up with GI outpatient for colonoscopy Anemia, unclear if chronic or acute on chronic as no previous Hb seen on both [facility] Hb dropped from 11.9 on admission to 9s This is likely more dilutional as all cell lines dropped but cannot rule out acute blood loss anemia as well due to blood in stool Hb is 9.3 today Hypokalemia Due to diarrhea Repleted and normalized prior to dc Carcinoid lung tumor status post surgery CT abd noted lung nodules. Patient already aware of this and reported she has been getting treatment and surveillance for this Prediabetes HbA1c is 6.1 Diet management Total Time Total Time Spent Total Time Spent (In Minutes): 40 Total Time Includes: Examination of the Patient, Discharge Planning and Medication Reconciliation Discharge Plan Discharge Items Patient Disposition: Home - Self-Care Reason For Visit: SEPSIS Discharge Diagnosis: Sepsis Colitis Activity: Resume your previous activity Non-emergency contact: Primary Care Provider and It Infrastructure Specialist Call non-emergency contact if: you have any medication questions and your symptoms worsen Follow-up/Referrals: Go Webb DO [Primary Care Provider] - 01/21/25 3:15 pm Diet: Regular Addtl Attending Provider Instructions: Mrs López You were hospitalized and managed for the above listed diagnoses You are being discharged on antibiotics till tomorrow to complete treatment. Please ensure follow up with Primary Doctor and Gastroenterology It was a pleasure taking care of you Pending Studies at Discharge: No Stand-Alone Forms: My [facility] Pili Pop, Smoking Cessation Medications and DC Order Prescriptions: New amoxicillin-pot clavulanate 875-125 mg tablet 1 tab PO BID Qty: 3 0RF Continued multivitamin Tablet 1 tab PO HS cyanocobalamin (vitamin B-12) 1,000 mcg/mL solution 1,000 mcg IM MONTHLY Rx Instructions: PER PT "PAST DUE" omeprazole 20 mg capsule,delayed release(DR/EC) 20 mg PO HS montelukast 10 mg tablet 10 mg PO HS melatonin 1 mg Tablet 2 mg PO HS escitalopram oxalate 5 mg tablet 5 mg PO HS budesonide-formoterol [Breyna] 160-4.5 mcg/actuation HFA aerosol inhaler 2 puff INHALATION BID Discharge Orders: Discharge Order (Routine); Ordered 01/16/25 Ordered By: Alesha Anders/Other Patient Handouts: A1C Admission Data Admit Date/Time: 01/13/25 04:11 Attending Provider: Alesha Cash I. Admit Provider: Jon Calderon Primary Care Provider: Go Webb Other Providers: Jon Calderon; Kailash Akhtar I; Shama Lyon; IRB Approved Study,Armando
[2025-01-16 16:16] VITALS: BP 121/67; PULSE 80; RESP 16; O2SAT 96
== END 2025-01-16 17:24 | disposition home or self-care (01) | DRG 872 ==
LOC: ED 00:55 → SUATTDRO 04:11 → EDINP 04:11 → 2N 05:59